=== PATIENT | male | born 1980 | race Caucasian/White ===

== ENCOUNTER 2020-07-18 06:29 | Outpatient (CLI) | payer OTHER, SELFPAY ==
--- NOTE | 2020-08-08 10:52 | WPDHOMESLEEP ---
Sleep Study - Home Unattended Date of Study: 07/19/20 Ordering Provider: Interpreting Physician: Home Sleep Study Type: Watch PAT Height: 1.83 m Weight: 200.034 kg Body Mass Index: 59.8 Neck Circumference (inches): 22 [place]: 12 Reason for Sleep Study Hypersomnia Sleep History Poor sleep quality,excessive day time sleepiness. PMFSH Past Medical History Medical History A-fib Surgical History Surgical History H/O gastric bypass Social History Social History Alcohol intake: never Medications Home Medications Medication Instructions Recorded Confirmed Type finasteride 5 mg tablet 1.25 mg PO DAILY tablet 01/01/20 06/30/20 History allopurinol 300 mg tablet 300 mg PO DAILY #90 tablet 01/16/20 06/30/20 Rx adalimumab 40 mg/0.4 mL See Rx Instructions SUB-Q .COMPLEX 03/14/20 06/30/20 History subcutaneous pen kit fluoxetine 20 mg capsule 20 mg PO DAILY #30 cap 05/13/20 06/30/20 Rx diltiazem HCl 120 mg 120 mg PO DAILY #30 cap 07/07/20 Rx capsule,extended release 24 hr allopurinol 300 mg tablet 300 mg PO DAILY #90 tablet 07/24/20 Rx dextroamphetamine-amphetamine 10 10 mg PO BID #60 tablet 07/24/20 Rx mg tablet dextroamphetamine-amphetamine ER 20 mg PO BID #60 cap 07/24/20 Rx 20 mg 24hr capsule,extend release Sleep Procedure Home slee study using watchPat device. Sleep Architecture Recording time-7Hr,31min. Sleep Time-6Hr.33Min.REM sleep 29.3% Respiratory Analysis AHI-2.6 ,RDI-12.4 REM RDI-16.5,NREM RDI-10.8 Oximetry Data Mean-95 ,Minimum-73 HORTENCIA-2.6 Sao2 89 or below-1.7 min. Snoring Profile Present,more common in supine sleep. Cardiac Profile Pulse--Mean69,Range-50 to 110. Assessment and Plan Additional Plan Mild to Moderate SANDRINE.More significant in REM sleep.Given significant daytime symptoms and comorbid conditions,consider doing in lab positive pressure titration study.
[2020-08-08 11:15] VITALS: BMI 59.8
== END 2020-07-18 06:30 | disposition home or self-care (01) ==
LOC: ANHCSM 06:29
PROVIDERS: PCP Family Medicine; Visit Provider Internal Medicine Cardiovascular Disease
DX: G47.10 Hypersomnia, unspecified (principal)
CPT/HCPCS: 95800

== ENCOUNTER 2020-09-08 00:28 | Outpatient (CLI) | payer OTHER, SELFPAY ==
[2020-09-08 18:50] LABS: SARS-CoV-2 RNA PCR Negative
== END 2020-09-08 00:29 | disposition home or self-care (01) ==
LOC: ANHCOVIDDT 00:28
PROVIDERS: PCP Family Medicine; Visit Provider Internal Medicine Critical Care Medicine
DX: R68.89 Other general symptoms and signs (principal); Z20.822 Contact with and (suspected) exposure to COVID-19
CPT/HCPCS: C9803; U0003

== ENCOUNTER 2020-09-10 09:25 | Outpatient (CLI) | payer OTHER, SELFPAY ==
--- NOTE | 2020-10-17 14:37 | WPDSLEEPSTUD ---
Sleep Study Date of Study: 09/10/20 Ordering Provider: Dr.Rafe Castillo Interpreting Physician: Sleep Study Type: CPAP Titration Height: 1.85 m Weight: 199.581 kg Body Mass Index: 58.0 Neck Circumference: 55.88 cm [place]: 11 Reason for Sleep Study Prior home sleep study done in July of 2020 showed presence of mild to moderate sleep apnea. Sleep History Patient gives history of poor quality of sleep, daytime sleepiness. Patient also mentions history of snoring. Comorbid conditions include morbid obesity and paroxysmal atrial fibrillation. [facility] Past Medical History Medical History A-fib Surgical History Surgical History (Updated 08/11/20 @ 16:18 by Too Ferrera MD) H/O gastric bypass History of David-en-Y gastric bypass 2007 Social History Social History Smoking status: Never smoker Alcohol intake: never Medications Home Medications Medication Instructions Recorded Confirmed Type finasteride 5 mg tablet 1.25 mg PO DAILY tablet 01/01/20 08/11/20 History allopurinol 300 mg tablet 300 mg PO DAILY #90 tablet 01/16/20 08/11/20 Rx adalimumab 40 mg/0.4 mL See Rx Instructions SUB-Q .COMPLEX 03/14/20 08/11/20 History subcutaneous pen kit fluoxetine 20 mg capsule 20 mg PO DAILY #30 cap 05/13/20 08/11/20 Rx diltiazem HCl 120 mg 120 mg PO DAILY #30 cap 07/07/20 08/11/20 Rx capsule,extended release 24 hr allopurinol 300 mg tablet 300 mg PO DAILY #90 tablet 07/24/20 08/11/20 Rx methylphenidate HCl 54 mg 54 mg PO QAM #30 tablet 08/26/20 Rx tablet,extended release 24 hr methylphenidate 30 mg/9 hr daily 30 mg TRANSDERMAL DAILY #30 ea 09/09/20 Rx transdermal patch dexmethylphenidate 40 mg 40 mg PO DAILY #30 ea 09/25/20 Rx capsule,extended release [id number] Sleep Procedure Polysomnographic study devoted and tired later to positive airway pressure titration. Mask used was air fit P 10 nasal pillows of medium size. Sleep Architecture Total recording time 428 minutes, total sleep time 427 minutes, sleep efficiency 82%. Sleep latency 0.9 minutes, REM latency 400 minutes. Awake after sleep onset 76 minutes, stage N1 9.5%, N2 90.2%, N3 0% stage R 0.3%. Supine sleep 80.8%, supine REM 0.3% Respiratory Analysis [facility] criteria used. During CPAP study there were no apneas, 3 hypopneas noted with index 0.5. Apnea-hypopnea index 0.5. All events occurred in non-REM sleep and in supine sleep. Arousals Total arousals 57 with index 8.0. spontaneous arousals 56, leg movement arousal 1. Periodic Limb Movements One hundred twenty-eight leg movements with index 21.9, only 1 associated with arousal with arousal index 0.1. No PLM. . Leg movements considered clinically irrelevant. Oximetry Data Mean oxygen saturation 94% Lowest oxygen saturation 91%. Therefore clinically significant desaturation did not occur during the study. Snoring Profile Occasional snoring. Cardiac Profile Normal sinus rhythm, average heart rate 72 beats per minute, range 54 to 99 beats per minute. EEG Profile Unremarkable EEG. Assessment and Plan Additional Plan Diagnosis #1-SANDRINE G47.33 #2-Morbid Obesity E66.01 #3-PAF I48.0 CPAP titration data - patient was started on a CPAP of 5 cm and after about 20 minutes was increased to 7 cm because of obstructive events and for comfort. At CPAP of 7 cm, 6 oz and 46 minutes of trial was performed with 81% sleep efficiency. 5 hours and 30 minutes of non-REM sleep and 1 minutes of REM sleep occurred. There were no apneas, 1 hypopnea was encountered. AHI 0.2. Oxygen saturation remained above 91%, averaging 94%. In terms of management, use of CPAP at 7 cm with mask of choice will be appropriate. Patient will require some degree of desensitization or adjustment to the use of nasal mask/ interface as well as to positive airway pressure.
[2020-10-17 14:51] VITALS: BMI 58.0
== END 2020-09-10 09:26 | disposition home or self-care (01) ==
LOC: ANHCSM 09:27
PROVIDERS: PCP Family Medicine; Visit Provider Internal Medicine Cardiovascular Disease
DX: G47.33 Obstructive sleep apnea (adult) (pediatric) (principal)
CPT/HCPCS: 95811

== ENCOUNTER 2022-07-05 14:08 | Outpatient (CLI) | payer OTHER, SELFPAY ==
[2022-07-05 18:59] LABS: Basophils Absolute Auto 0.1 K/mm3 (0.0-0.1); Basophils Percent Auto 0.7 % (0.2-1.2); Eosinophils Absolute Auto 0.1 K/mm3 (0-0.3); Eosinophils Percent Auto 1.4 % (0-4.4); Hematocrit 42.1 % (42.0-52.0); Hemoglobin 14.2 g/dL (14.0-18.0); Immature Granulocyte Absolute 0.04 K/mm3 (0.00-0.031); Immature Granulocyte Percent A 0.5 % (0-0.5); Lymphocytes Absolute Auto 1.86 K/mm3 (0.9-3.2); Lymphocytes Percent Auto 24.2 % (18.3-44.2); Mean Corpuscular HGB Conc 33.7 g/dl (32-36); Mean Corpuscular Hemoglobin 30.5 pg (26-34); Mean Corpuscular Volume 90.5 fl (80-100); Mean Platelet Volume 9.4 fl (7.4-10.4); Monocytes Absolute Auto 0.7 K/mm3 (0.1-0.6); Monocytes Percent Auto 9.4 % (2.6-8.5); Neutrophils Absolute Auto 4.9 K/mm3 (1.3-6.7); Neutrophils Percent Auto 63.8 % (45.5-73.1); Platelet Count Result 326 k/mm3 (150-375); Red Blood Count 4.65 M/mm3 (4.6-6.20); Red Cell Distribution Width 13.1 % (11.5-14.5); White Blood Count 7.7 K/mm3 (4.5-10.0)
[2022-07-05 19:09] LABS: Alanine Aminotransferase 18 U/L (6-50); Albumin Level 4.3 g/dL (3.5-5.1); Alkaline Phosphatase 107 U/L (38-126); Anion Gap 15 mmol/L (8-16); Aspartate Amino Transferase 21 U/L (17-59); Bilirubin,Total 0.7 mg/dL (0.2-1.3); Blood Urea Nitrogen 15 mg/dL (9-20); Calcium 8.7 mg/dL (8.4-10.2); Carbon Dioxide 21 mmol/L (22-30); Chloride 104 mmol/L (98-107); Cholesterol 132 mg/dL (0-200); Estimated Glomerular Filt Rate > 60; Glucose 107 mg/dL (65-110); HDL Direct 33 mg/dL; Potassium 3.7 mmol/L (3.4-5.0); Sodium 140 mmol/L (137-145); Triglycerides 76 mg/dL (<150); Uric Acid 5.9 mg/dL (3.5-8.5)
[2022-07-05 19:20] LABS: LDL Cholesterol Direct 73 mg/dL
[2022-07-05 19:29] LABS: Hemoglobin A1C 5.1 % (<5.7)
== END 2022-07-05 14:09 | disposition home or self-care (01) ==
LOC: ANHGOSHLAB 14:10
PROVIDERS: PCP Emergency Medicine; Visit Provider Physician Assistant
DX: M10.9 Gout, unspecified (principal); I10 Essential (primary) hypertension; E66.01 Morbid (severe) obesity due to excess calories; Z79.899 Other long term (current) drug therapy; Z98.84 Bariatric surgery status
CPT/HCPCS: 36415; 80053; 80061; 83036; 84443; 84550; 85025

== ENCOUNTER 2022-08-03 10:17 | Outpatient (CLI) | payer OTHER, SELFPAY ==
[2022-08-05 12:14] LABS: Anti Nuclear Antibody Pattern Nuclear, Speckled
== END 2022-08-03 10:18 | disposition home or self-care (01) ==
LOC: ANHGOSHLAB 10:19
PROVIDERS: PCP Emergency Medicine; Visit Provider Emergency Medicine
DX: M25.50 Pain in unspecified joint (principal)
CPT/HCPCS: 36415; 86038; 86039

== ENCOUNTER 2025-02-11 11:30 | Outpatient (CLI) | payer OTHER, SELFPAY ==
--- OUTSIDE RECORDS SUMMARY | 2025-02-11 13:06 | XMS_ITS | Clinical Summary ---
Author Organization [facility] Address [address] [place] [address] Care Team Providers Care Safety Investigator Name Role Phone Ivan Ferrera MD Primary Care Provider [phone] Source Comments [facility],non-owned Affiliates and Associated Physician Practices is amultiple site organization consisting of ambulatory clinics and hospital sitesin [place], [place], [place] and [place]. This disclosure is being madepursuant to the Care Everywhere program and may not contain all information available regarding this patient. Last updated 18.[facility] Allergies Active Allergy Reactions Criticality Noted Date Comments Penicillins Other Low Medications * Be aware that medications may not be up to date on this document. Alwaysverify current medications with the patient. allopurinol (ZYLOPRIM) 300 MG tablet Take 1 (one) tablet by mouth once daily 7 Active clobetasol (Temovate) 0.05 % ointment Apply to affected twice daily. 30 days supply. 60 g 2 Active triamcinolone acetonide (Kenalog) 0.1 % ointment Apply to psoriasis from neck down twice daily. 30 days supply. 454 g 3 Active hydrocortisone (Hytone) 2.5 % cream Apply to face twice daily for 7 days on then 7 days off . 30 days supply. 30 g 3 Active ketoconazole (Nizoral) 2 % shampoo Apply to wet hair/scalp, lather well, leave on for 3-5 minutes, rinse thoroughly, three times a week. 30 day supply 120 mL 3 3 Active fluocinonide (Lidex) 0.05 % solutionIndica tions:Other psoriasis Apply to affected area on scalp daily as needed for psoriasis . 30 day supply. 60 mL 3 3 Active amphetamine-de xtroamphetamin e (Adderall) 15 MG tablet 3 Active DULoxetine (Cymbalta) 30 MG capsule 3 Active Vyvanse 60 MG capsule 3 Active fluocinolone (Dermotic) 0.01 % otic oilIndications :Other psoriasis Apply a few drops to ears once daily 20 mL 5 3 Active finasteride (Propecia) 1 MG tabletIndicati ons:Androgenet ic Alopecia Take 1 (one) tablet by mouth once daily No PA requests for this medication Reasons: Male Pattern Baldness 30 tablet 11 4 Active adalimumab (Humira, 2 Pen,) 40 MG/0.4ML injectionIndic ations:Other psoriasis Inject 0.4 mL subcutaneously every 14 days 1 kit 5 Active risankizumab-r zaa (Skyrizi Pen) 150 MG/ML injectionIndic ations:Other psoriasis Inject 1 mL subcutaneously on day 0. Inject 1 mL subcutaneously on day 28. 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 Benign hypertension 11/05/2014 Overview (10/19/2019): Overview: HTN (hypertension), benign Paroxysmal atrial fibrillation 11/05/2014 Overview (10/19/2019): Overview: Paroxysmal atrial fibrillation Overview: Atrial fibrillation status post cardioversion Postoperative state 11/05/2014 Overview (10/19/2019): Overview: S/P gastric bypass Obesity 02/22/2014 Overview (10/19/2019): Overview: Morbid obesity 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 Encounters Date Type Department Care Team Description 11/26/2024 [facility] [address] [place] [address] Analy Saenz PA Medication Monitoring (COSENTYX SENSOREADY (300 MG) 150 MG/ML SOLUTION) from Last 3 Months Family History Medical History Relation Name Comments None Known Brother None Known Father None Known Maternal Aunt None Known Maternal Grandfather None Known Maternal Grandmother None Known Maternal Uncle None Known Mother None Known Other None Known Paternal Aunt None Known Paternal Grandfather None Known Paternal Grandmother None Known Paternal Uncle None Known Sister Asthma Neg Hx CVA Neg Hx Cancer - Breast Neg Hx Cancer - Other Neg Hx Cancer - Skin, Melanoma Neg Hx Cancer - Skin, Non Melanoma Neg Hx Eczema Neg Hx Hemophilia Neg Hx Psoriasis Neg Hx Relation Name Status Comments Brother Father Maternal Aunt Maternal Grandfather Maternal Grandmother Maternal Uncle Mother Other Paternal Aunt Paternal Grandfather Paternal Grandmother Paternal Uncle Sister Social History Tobacco Use Types Packs/Day Years Used Date Smoking Tobacco: Never Smokeless Tobacco: Never Tobacco Cessation:Counseling Given: No Alcohol Use Standard Drinks/Week Comments Not Currently 2 (1 standard drink = 0.6 oz pur e alcohol) Sex and Gender Information Value Date Recorded Sex Assigned at Not on file Legal Sex Male 5:19 PM ASSEMBLER TUBING Gender Identity Not on file Sexual Orientation Not on file Plan of Treatment Upcoming Encounters Date Type Department Care Team (Late st Contact Info) Description 05/10/2025 10:20 AM CDT Office Visit [facility] - Dermatology [address] [place] [address], [place] [id number] Analy Saenz PA [address] [place] [address] [address] [place] [id number] Health Maintenance Due Date Last Done Comments HIV SCREENING 1997 DTAP/TDAP/TD VACCINES (1 - Tdap) 2001 HEPATITIS B VACCINE (1 of 3 - 19+ 3-dose series) 2001 COVID-19 VACCINE (1 - 2023-2 5 season) 2024 DEPRESSION SCREENING 09/05/2024 INFLUENZA VACCINE (Season Ended) 2025 LIPID TESTING 10/20/2029 10/20/2024, 06/21/2018 ZOSTER VACCINE (1 of 2) 2032 HEPATITIS C SCREENING Completed 10/24/2019 HIB VACCINE Aged Out No longer eligi ble based on patient's age to complete this topic HPV VACCINE Aged Out No longer eligi ble based on patient's age to complete this topic MENINGOCOCCAL (Group B) VACCINE SHARED DECISION-MAKING Aged Out No longer eligible based on patient's age to complete this topic MENINGOCOCCAL GROUPS A/C/Y/W VACCINE Aged Out No longer eligible b ased on patient's age to complete this topic PNEUMOCOCCAL VACCINE Aged Out No long er eligible based on patient's age to complete this topic Procedures Procedure Name Priority Date/Time Associated Diagnosis Comments LIPID PROFILE 10/20/2024 11:36 AM ASSEMBLER TUBING HEPATITIS SCREEN ACUTE Routine 10/24/2019 2:47 PM ASSEMBLER TUBING Encounter for long-term (current) use of high-risk medication from Last 3 Months or Most Recently Relevant to Health Maintenance Results * LIPID PROFILE (10/20/2024 11:36 AM ASSEMBLER TUBING) Cholesterol 153 <200 mg/dL [facility] HDL Cholesterol 48 > OR = 40 mg/dL [facility] Triglycerides 97 <150 mg/dL [facility] LDL Calculated 86 mg/dL (calc) [facility] Comment: Reference range: <100 Desirable range <100 mg/dL for primary prevention; <70 mg/dL for patients with CHD or diabetic patients with > or = 2 CHD risk factors. LDL-C is now calculated using the Hien calculation, which is a validated novel method providing better accuracy than the Friedewald equation in the estimation of LDL-C. Curt GASPAR et al. CRISTIANO. 2013;310(19): 1462-7199 (http://education.Icon BioscienceBeintoo/faq/UEC047) CHOL/HDLC RATIO 3.2 <5.0 (calc) [facility] Non HDL Cholesterol 105 <130 mg/dL (calc) [facility] Comment: For patients with diabetes plus 1 major ASCVD risk factor, treating to a non-HDL-C goal of <100 mg/dL (LDL-C of <70 mg/dL) is considered a therapeutic option. Test Performed at: [facility] [address] [place] [address] DAVID MONTEIRO MD 10/20/2024 11:3 6 AM ASSEMBLER TUBING 10/20/2024 11:37 AM ASSEMBLER TUBING us Analy [facility] - CHEMISTRY ORDERABLES F inal Result [address] [address] [place] [address] * HEPATITIS SCREEN ACUTE (10/24/2019 2:47 PM ASSEMBLER TUBING) Hepatitis A Virus Antibody IgM NON-REACTI VE NON-REACT [facility] Comment: For additional information, please refer to http://Xuba.sevenload/faq/PBG543 (This link is being provided for informational/ educational purposes only.) Hepatitis B Virus Surface Antigen NON-REACTI VE NON-REACT [facility] Hepatitis B Core Virus Antibody IgM NON-REACTI VE NON-REACT [facility] Hepatitis C Antibody NON-REACTI VE NON-REACT [facility] Signal to Cut-Off 0.05 <1.00 [facility] Comment: HCV antibody was non-reactive. There is no laboratory evidence of HCV infection. In most cases, no further action is required. However, if recent HCV exposure is suspected, a test for HCV RNA (test code 36207) is suggested. For additional information please refer to http://Xuba.sevenload/faq/YHI82e0 (This link is being provided for informational/ educational purposes only.) Test Performed at: [facility] [address] [facility] [place] [address] HOWARD JC DO,MPH Blood BLOOD SPECIMEN / Unknown 10/24/2019 2:47 PM ASSEMBLER TUBING 10/24/2019 2:47 PM ASSEMBLER TUBING us Analy [facility] - CHEMISTRY ORDERABLES F inal Result [facility] [address] [place] [address] from Last 3 Months or Most Recently Relevant to Health Maintenance [place] [address] [facility] [place] [place] [address] [facility] Care Teams Safety Investigator Relationship Specialty Start Date End Date Ivan Ferrera MD [address] [place] [id number] [facility] - General 07/20/18
--- OUTSIDE RECORDS SUMMARY | 2025-02-11 13:06 | XMS_ITS | Encounter Summary ---
Author Organization [facility] Address [address] [place] [address] Care Team Providers Care Chlorination Operator Name Role Phone Ivan Ferrera MD Primary Care Provider [phone] Reason for Referral * Medication Prior Authorization - Closed Specialty Diagnoses / Procedures Referred By Contac t Referred To Contact Diagnoses Other psoriasis Analy Saenz PA [facility] [place] [address] Phone: tel: fax: Referral ID Status Reason Start Date Expiration Date Visits Re quested Visits Authorized [id number] Closed 1 1 * Medication Prior Authorization - Closed Specialty Diagnoses / Procedures Referred By Contac t Referred [place] [address] [place] [address] [place] [address] Phone: tel: fax: Referral ID Status Reason Start Date Expiration Date Visits Re quested Visits Authorized [id number] Closed 1 1 Reason for Visit * Reason Onset Date Comments Med Question 10/31/2024 Encounter Details Date Type Department Care Team (Late st Contact Info) Description 10/31/2024 Telephone [facility] - Dermatology [address] [place] [address], [place] [address] Analy Saenz PA [address] [facility] [address] [place] [address] Med Question Social History Tobacco Use Types Packs/Day Years Used Date Smoking Tobacco: Never Smokeless Tobacco: Never Alcohol Use Standard Drinks/Week Comments Not Currently 2 (1 standard drink = 0.6 oz pur e alcohol) Sex and Gender Information Value Date Recorded Sex Assigned at Not on file Legal Sex Male 5:19 PM PROCEDURE RN Gender Identity Not on file Sexual Orientation Not on file documented as of this encounter Progress Notes * Joslyn Flynn - 11/20/2024 9:52 AM CDT Medication Prior Authorization: Medication: Cosentyx sensoready pen (150mg/ml) Status: Approved 11/20/24 through 05/19/25 Submitted via: Cover My Meds ([place]: [id number]) Insurance: [employer] [place] (p: [phone]) (f: [phone]) Case/Reference number: ID: [id number] RX Card Billing Info: BIN: [id number] PCN: [id number] GROUP: [id number] ID: [id number] PA approval notice uploaded to media tab. Routed approval details to [facility]. Joslyn Flynn- Pharmacy Cardroom Manager (Dermatology) documented in this encounter Miscellaneous Notes * Telephone Encounter - Joslyn Flynn - 11/20/2024 6:44 AM CDT PA submitted for new start Cosentyx sensoready pen (150mg/ml) for loading dose of 300mg every 7 days for 5 weeks and maintenance dose of 300mg every 4 weeks via [place] currently waiting on decision. [place]: [id number] Provider:[id number] (Dany) Joslyn Flynn [facility] - Pharmacy Cardroom Manager * Telephone Encounter - Analy Saenz PA - 11/19/2024 5:02 PM CDT Order for cosentyx sent Analy DAWN PA-C * Telephone Encounter - Analy Saenz PA - 11/19/2024 5:02 PM CDT ----- Message from Pharmacy Project/Production Manager Imaging Joslyn sent at 11/19/2024 3:39 PM CDT ----- The patient will have to try and fail both preferred options for at least three consecutive months. Preferred options: Xeljanz and Cosentyx * Telephone Encounter - Anahi Lord - 11/02/2024 1:48 PM CST Called Evonne advised pt is changing to Skyrizi. Anahi Lord EDURE RN * Telephone Encounter - Tae Nguyen - 10/31/2024 2:36 PM CST [facility] is needing to speak with staff regarding medication Humira. CB# [phone] EDURE RN documented in this encounter Plan of Treatment Upcoming Encounters Date Type Department Care Team (Late st Contact Info) Description 05/10/2025 10:20 AM CDT Office Visit [facility] - Dermatology [address] [place] [address], [place] [address] Analy Saenz PA [address] [place] [address] [address] [place] [phone] documented as of this encounter Visit Diagnoses Diagnosis Other psoriasis- Primary documented in this encounter Care Teams Chlorination Operator Relationship Specialty Start Date End Date Ivan Ferrera MD [address] [place] [address] PCP - General 07/20/18 documented as of this encounter
--- OUTSIDE RECORDS SUMMARY | 2025-02-11 13:06 | XMS_ITS | Clinical Summary ---
Author Organization [facility] Address [address] [place] [address] Care Team Providers Care Lead Pl Sql Developer Name Role Phone Ivan Ferrera MD Primary Care Provider [phone] Allergies Active Allergy Reactions Criticality Noted Date Comments Ibuprofen Penicillins Other (See comments) Low Medications allopurinol (ZYLOPRIM) 300 mg tablet Take 300 mg by mouth daily. 3 06/01/2018 Active dilTIAZem XR (CARTIA XT) 240 mg 24 hr capsule Take 1 capsule (240 mg total) by mouth daily. 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 Obesity 02/22/2014 Medical History Medical History Date Comments Personal history of other di seases of the circulatory system History of atrial fibrillati on - (Added by KEN Conv) Personal history of other di seases of the digestive system History of small bowel obstr uction - (Added by KEN Conv) Panic disorder without agoraphobia Panic attacks - (Added by KEN Conv) Family History Medical History Relation Name Comments Diabetes Father Diabetes mellit us; Liver cancer Father Cancer, liver; Cause of : Cancer, liver Atrial fibrillation Mother Atrial f ibrillation; Relation Name Status Comments Father Mother Social History Tobacco Use Types Packs/Day Years Used Date Smoking Tobacco: Never Smokeless Tobacco: Never Alcohol Use Standard Drinks/Week Comments No 0 (1 standard drink = 0.6 oz pur e alcohol) Personal Safety Answer Date Recorded Getting School Help Needed Not on file 11/04 Sex and Gender Information Value Date Recorded Sex Assigned at Not on file Legal Sex Male 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 Gender Identity Not on file Sexual Orientation Not on file Obstetrics History Last Filed Vital Signs Vital Sign Reading Time Taken Comments Blood Pressure 114/78 06/20/2018 2:10 PM CDT Pulse 73 06/20/2018 2:10 PM CDT Temperature - - Respiratory Rate - - Oxygen Saturation 97% 06/20/2018 2:10 PM CDT Inhaled Oxygen Concentration - - Weight 161.5 kg (356 lb) 06/20/2018 2:10 PM CDT Height 185.4 cm (6' 1) 06/20/2018 2:10 PM CDT Body Mass Index 46.97 06/20/2018 2:10 PM CDT Plan of Treatment Health Maintenance Due Date Last Done Comments Depression Screening 1982 Hepatitis C Screening 1982 DTaP/Tdap/Td Vaccine (1 - Tdap) 1993 Varicella Vaccines (1 of 2 - 13+ 2-dose series) 11/24/1995 Hepatitis B Screening 2000 Regular Well Visit/Exam 18-64 2000 Covid-19 Vaccine (2023-2 5 season) 2024 08/14/2021, 11/09/2020 Influenza Vaccine (Season Ended) 2025 09/28/2018 HPV Vaccines Aged Out No longer eligi ble based on patient's age to complete this topic Pneumococcal vaccine <65 Aged Out No longer eligible based on patient's age to complete this topic Insurance [facility] [facility] MEDICA[address] Care Teams Lead [address] Sql Developer Relationship Specialty Start Date End Date Ivan Ferrera MD [address] [place] [address] PCP - General 11/05/14
--- OUTSIDE RECORDS SUMMARY | 2025-02-11 13:06 | XMS_ITS | Referral Summary ---
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 Obesity 02/22/2014 Social History Tobacco Use Types Packs/Day Years Used Date Smoking Tobacco: Never Smokeless Tobacco: Never Alcohol Use Standard Drinks/Week Comments No 0 (1 standard drink = 0.6 oz pur e alcohol) Personal Safety Answer Date Recorded Getting School Help Needed Not on file 11/04 Sex and Gender Information Value Date Recorded Sex Assigned at Not on file Legal Sex Male 2:34 AM SLIP DUMPER Gender Identity Not on file Sexual Orientation Not on file Last Filed Vital Signs Vital Sign Reading [...] 06/20/2018 2:10 PM CDT Plan of Treatment Not on file Insurance [facility] MEDICAID [facility] MEDICAID Care Teams Wireless Sales Manager Relationship Specialty Start Date End Date Ivan Ferrera MD [address] [place] [address] PCP - General 11/05/14
--- OUTSIDE RECORDS SUMMARY | 2025-02-11 13:06 | XMS_ITS | Clinical Summary ---
Author Organization [facility] Address [address] [place] [address] Care Team Providers Care Dean Of Women Name Role Phone Unavailable Primary Care Provider Unavailabl e Medications amphetamine-de xtroamphetamin e (ADDERALL XR) 30 mg Extended Release 24 hour capsule Take 1 Capsule (30 mg) by mouth 2 times daily. 60 Capsule 05/02/2023 4:00 PM CDT 3 Active dextroamphetam ine-amphetamin e (ADDERALL) 15 mg tablet Take one tablet (15 mg) orally daily As Needed for focus 30 Tablet 06/04/2023 11:40 AM CDT 3 Active allopurinoL (ZYLOPRIM) 300 mg tablet Take 1 Tablet (300 mg) by mouth daily. 90 Tablet 1 10/10/2023 2:57 PM RESAW TAILER 3 Active dextroamphetam ine-amphetamin e (ADDERALL) 15 mg tablet Take 1 Tablet (15 mg) by mouth 1 time daily as needed. 30 Tablet 07/05/2023 11:37 AM CDT 3 Active dextroamphetam ine-amphetamin e (ADDERALL) 15 mg tablet Take 1 Tablet (15 mg) by mouth 1 time daily as needed for focus. 30 Tablet 08/16/2023 12:06 PM RESAW TAILER 3 Active semaglutide (Rybelsus) 3 mg Tablet Take 1 Tablet (3 mg) by mouth daily in the morning on empty stomach. 30 Tablet 3 Active fluocinolone acetonide oiL (DERMOTIC) 0.01 % Drops Apply a few drops to ears once daily 20 mL 5 09/15/2023 11:41 AM RESAW TAILER 3 Active lisdexamfetami ne (VYVANSE) 60 mg capsule Take 1 Capsule (60 mg) by mouth daily. 30 Capsule 3 Active dextroamphetam ine-amphetamin e (ADDERALL) 15 mg tablet Take 1 Tablet (15 mg) by mouth 1 time daily as needed for focus. 30 Tablet 4 Active dextroamphetam ine-amphetamin e (ADDERALL) 15 mg tablet Take 1 Tablet (15 mg) by mouth daily as needed for focus. Max Daily Amount: 15 mg 30 Tablet 10/20/2023 4:01 PM RESAW TAILER 4 Active lisdexamfetami ne (VYVANSE) 60 mg capsule Take 1 Capsule (60 mg) by mouth daily. Max Daily Amount: 60 mg 30 Capsule 10/28/2023 6:22 PM RESAW TAILER 4 Active lisdexamfetami ne (VYVANSE) 60 mg capsule Take 1 Capsule (60 mg) by mouth daily. Max Daily Amount: 60 mg (YANY) 30 Capsule 12/24/2023 5:52 PM CDT 4 Active lisdexamfetami ne (VYVANSE) 60 mg capsule Take 1 Capsule (60 mg) by mouth daily. 30 Capsule 11/25/2023 6:14 PM CDT 4 Active DULoxetine (CYMBALTA) 60 mg Capsule, Delayed Release(E.C.) Take 1 Capsule (60 mg) by mouth daily. 90 Capsule 3 11/14/2023 7:03 PM CDT 4 Active dextroamphetam ine-amphetamin e (ADDERALL) 15 mg tablet Take 1 tablet by mouth daily as needed for afternoon focus. 30 Tablet 11/16/2023 4:39 PM CDT 4 Active dextroamphetam ine-amphetamin e (ADDERALL) 15 mg tablet Take 1 Tablet (15 mg) by mouth 1 time daily in the afternoon as needed for focus. Max Daily Amount: 15 mg 30 Tablet 01/16/2024 7:11 PM CDT 4 Active dextroamphetam ine-amphetamin e (ADDERALL) 15 mg tablet Take 1 Tablet (15 mg) by mouth daily NEEDED FOR AFTERNOON FOCUS. Max Daily Amount: 15 mg 30 Tablet 02/16/2024 6:23 PM CDT 4 Active lisdexamfetami ne (VYVANSE) 60 mg capsule Take 1 Capsule (60 mg) by mouth daily. Max Daily Amount: 60 mg 30 Capsule 02/21/2024 5:31 PM CDT 4 Active lisdexamfetami ne (VYVANSE) 60 mg capsule Take 1 Capsule (60 mg) by mouth daily. Max Daily Amount: 60 mg 30 Capsule 03/22/2024 12:00 PM CDT 4 Active dextroamphetam ine-amphetamin e (ADDERALL) 15 mg tablet Take 1 Tablet (15 mg) by mouth 1 time daily as needed for afternoon focus. Max Daily Amount: 15 mg 30 Tablet 04/20/2024 6:30 PM CDT 4 Active lisdexamfetami ne (VYVANSE) 60 mg capsule Take 1 Capsule (60 mg) by mouth daily. Max Daily Amount: 60 mg 30 Capsule 05/22/2024 12:45 PM CDT 4 Active lisdexamfetami ne (VYVANSE) 60 mg capsule Take 1 Capsule (60 mg) by mouth daily. Max Daily Amount: 60 mg 30 Capsule 06/24/2024 2:29 PM CDT 4 Active venlafaxine (EFFEXOR XR) 37.5 mg Extended Release 24 hour capsule Take 1 Capsule (37.5 mg) by mouth daily. 30 Capsule 06/05/2024 11:35 AM CDT 4 Active allopurinoL (ZYLOPRIM) 300 mg tablet Take 1 Tablet (300 mg) by mouth daily. 90 Tablet 1 10/20/2024 12:21 PM RESAW TAILER 4 Active venlafaxine (EFFEXOR XR) 75 mg Extended Release 24 hour capsule Take 1 Capsule (75 mg) by mouth daily. 30 Capsule 5 10/20/2024 12:21 PM RESAW TAILER 4 Active finasteride (PROPECIA) 1 mg Tablet Take 1 Tablet (1 mg) by mouth daily. 30 Tablet 11 10/20/2024 12:21 PM RESAW TAILER 4 Active lisdexamfetami ne (VYVANSE) 60 mg capsule Take 1 Capsule (60 mg) by mouth daily. Max Daily Amount: 60 mg 30 Capsule 08/23/2024 11:09 AM RESAW TAILER 4 Active lisdexamfetami ne (VYVANSE) 60 mg capsule Take 1 Capsule (60 mg) by mouth daily. Max Daily Amount: 60 mg 30 Capsule 09/22/2024 5:54 PM RESAW TAILER 4 Active ciprofloxacin- dexAMETHasone (CIPRODEX) 0.3-0.1 % Drops, Suspension Administer 4 drops into each ear every 12 hours for 7 days 7.5 mL 5 Active predniSONE (DELTASONE) 50 mg tablet Take 1 Tablet (50 mg) by mouth daily. 5 Tablet 09/12/2024 12:05 PM RESAW TAILER 5 Active cyanocobalamin 1,000 mcg Tablet Take 1 Tablet (1,000 mcg) by mouth daily. 90 Tablet 2 11/14/2024 2:08 PM CDT 5 Active venlafaxine (EFFEXOR XR) 37.5 mg Extended Release 24 hour capsule Take 1 Capsule (37.5 mg) by mouth daily. 90 Capsule 11/29/2024 11:53 AM CDT 5 Active lisdexamfetami ne (VYVANSE) 60 mg capsule Take 1 Capsule (60 mg) by mouth daily. Max Daily Amount: 60 mg 30 Capsule 11/24/2024 5:58 PM CDT 5 Active lisdexamfetami ne (VYVANSE) 60 mg capsule Take 1 Capsule (60 mg) by mouth daily. Max Daily Amount: 60 mg (January) 30 Capsule 5 Active lisdexamfetami ne (VYVANSE) 60 mg capsule Take 1 Capsule (60 mg) by mouth daily. Max Daily Amount: 60 mg (december) 30 Capsule 12/25/2024 5:02 PM CDT 5 Active ciprofloxacin- dexAMETHasone (CIPRODEX) 0.3-0.1 % Drops, Suspension Administer 4 drops into each ear every 12 hours for 7 days 7.5 mL 5 Active Acetic Acid (VOSOL) 2 % Solution ADMINISTER 4 DROPS IN THE LEFT EAR 3 TIMES DAILY FOR 7 DAYS. 15 mL 5 Active cyanocobalamin 1,000 mcg Tablet Take 1 Tablet (1,000 mcg) by mouth daily. 90 Tablet 2 5 Active lisdexamfetami ne (VYVANSE) 60 mg capsule Take 1 Capsule (60 mg) by mouth daily. Max Daily Amount: 60 mg 30 Capsule 5 Active lisdexamfetami ne (VYVANSE) 60 mg capsule Take 1 Capsule (60 mg) by mouth daily. Max Daily Amount: 60 mg 30 Capsule 01/26/2025 12:57 PM CDT 5 Active lisdexamfetami ne (VYVANSE) 60 mg capsule Take 1 Capsule (60 mg) by mouth daily. Max Daily Amount: 60 mg 30 Capsule 5 Active dextroamphetam ine-amphetamin e (ADDERALL) 15 mg tablet Take 1 Tablet (15 mg) by mouth daily. Max Daily Amount: 15 mg 30 Tablet 01/26/2025 12:57 PM CDT 5 Active dextroamphetam ine-amphetamin e (ADDERALL) 15 mg tablet Take 1 Tablet (15 mg) by mouth daily. Max Daily Amount: 15 mg 30 Tablet 12/25/2024 5:02 PM CDT 5 01/26/20 25 Discontinu ed(Reorder ) Social History Tobacco Use Types Packs/Day Years Used Date Smoking Tobacco: Never Assessed Sex and Gender Information Value Date Recorded Sex Assigned at Not on file Legal Sex Male 12:50 PM CDT Gender Identity Not on file Sexual Orientation Not on file Plan of Treatment Health Maintenance Due Date Last Done Comments DTAP/TDAP/TD VACCINES (1 - Tdap) 2001 HEPATITIS B VACCINES (1 of 3 - 19+ 3-dose series) 2001 INFLUENZA VACCINE (#1) 2024 HPV VACCINES Aged Out No longer eligi ble based on patient's age to complete this topic Insurance RX [employer] (INTERNAL) [facility] [employer] Commercial
--- OUTSIDE RECORDS SUMMARY | 2025-02-11 13:06 | XMS_ITS | Encounter Summary ---
Author Organization [facility] Address [address] [place] [address] Care Team Providers Care Banquet Cook Name Role Phone Ivan Ferrera MD Primary Care Provider [phone] Reason for Visit * Reason Onset Date Comments MEDICATION REFILL 01/15/2021 Encounter Details Date Type Department Care Team (Late Contact Info) Description 01/15/2021 Refill [facility] [address] [place] [address] [phone] Analy Saenz PA [address] [place] [address] [place] [id number] MEDICATION REFILL Social History Tobacco Use Types Packs/Day Years Used Date Smoking Tobacco: Never Smokeless Tobacco: Never Alcohol Use Standard Drinks/Week Comments Yes 2 (1 standard drink = 0.6 oz pur e alcohol) Sex and Gender Information Value Date Recorded Sex Assigned at Not on file Legal Sex Male 5:19 PM MLT Gender Identity Not on file Sexual Orientation Not on file documented as of this encounter Plan of Treatment Upcoming Encounters Date Type Department Care Team (Late Contact Info) Description 05/10/2025 10:20 AM CDT Office Visit [facility] [address] [place] [phone] Analy Saenz PA [address] [place] [address] [place] [phone] documented as of this encounter Visit Diagnoses Not on filedocumented in this encounter Care Teams Banquet Cook Relationship Specialty Start Date End Date Ivan Ferrera MD [address] [place] [address] PCP - General 07/20/18 documented as of this encounter
[2025-02-11 13:54] LABS: Free T3 3.97 pg/mL (2.71-6.16); Free T4 Free Thyroxine 1.26 ng/dL (0.78-2.19)
== END 2025-02-11 11:31 | disposition home or self-care (01) ==
LOC: ANHGOSHLAB 11:31
PROVIDERS: PCP Nurse Practitioner Family; Visit Provider Nurse Practitioner Family
DX: I10 Essential (primary) hypertension (principal); E66.01 Morbid (severe) obesity due to excess calories; Z68.42 Body mass index [BMI] 45.0-49.9, adult
CPT/HCPCS: 36415; 84439; 84443; 84481